=== PATIENT | female | born 1950 | race Caucasian/White ===

== ENCOUNTER 2018-08-07 09:13 | Outpatient (CLI) | payer MEDICARE, MEDICAID ==
[2018-08-07 10:20] LABS: BASOPHILS % (AUTO) 0.3 % (0-1); EOSINOPHILS # (AUTO) 0.2 X10'3 (0-0.9); EOSINOPHILS % (AUTO) 2.6 % (0-6); HEMATOCRIT 37.7 % (35.0-45.0); HEMOGLOBIN 12.5 g/dl (12.0-16.0); LYMPHOCYTES # (AUTO) 2.1 X10'3 (1.1-4.8); LYMPHOCYTES % (AUTO) 27.9 % (21-51); MEAN CORPUSCULAR HEMOGLOBIN 30.1 PG (27.0-31.0); MEAN CORPUSCULAR HGB CONC 33.1 g/dL (33.0-36.5); MEAN PLATELET VOLUME 8.3 FL (7.4-10.4); MONOCYTES # (AUTO) 0.5 X10'3 (0-0.9); MONOCYTES % (AUTO) 7.3 % (2-12); NEUTROPHILS # (AUTO) 4.6 X10'3 (1.8-7.7); NEUTROPHILS % (AUTO) 61.9 % (42-75); PLATELET COUNT 237 X10'3 (140-440); RED BLOOD COUNT 4.14 X10'6 (4.20-5.60); RED CELL DISTRIBUTION WIDTH 13.6 % (11.5-14.5); WHITE BLOOD COUNT 7.5 X10'3 (4.5-11.0)
[2018-08-07 10:27] LABS: ALANINE AMINOTRANSFERASE 38 U/L (12-78); ALBUMIN 3.7 G/DL (3.4-5.0); ALBUMIN/GLOBULIN RATIO 1.1 (1.1-1.5); ALKALINE PHOSPHATASE 82 IU/L (46-116); ANION GAP 7 (8-16); ASPARTATE AMINO TRANSFERASE 21 U/L (10-37); BILIRUBIN,TOTAL 0.4 MG/DL (0.1-1.0); BLOOD UREA NITROGEN 22 MG/DL (7-18); BUN/CREATININE RATIO 26.2 (6.6-38.0); CHLORIDE 106 MMOL/L (99-107); CREATININE 0.84 MG/DL (0.40-0.90); GLUCOSE 89 MG/DL (70-104); POTASSIUM 3.4 MMOL/L (3.5-5.1); SODIUM 143 MMOL/L (135-145); TOTAL CARBON DIOXIDE 29.7 MMOL/L (24-32); TOTAL PROTEIN 7.1 G/DL (6.4-8.2); eGFR 67 ML/MIN
[2018-08-07 10:31] LABS: PARTIAL THROMBOPLASTIN TIME 27 SECONDS (22-32)
== END 2018-08-07 23:59 | disposition home or self-care (01) ==
LOC: LAB 09:13
PROVIDERS: ATTEND Otolaryngology
DX: D69.1 Qualitative platelet defects (principal)
CPT/HCPCS: 36415; 80053; 85025; 85576; 85610; 85730

== ENCOUNTER 2022-05-13 16:59 | Emergency (ER) | payer MEDICARE, MEDICAID ==
[~2022-05-13] VITALS: Ht 172.7 cm; Wt 81.0 kg
--- NOTE | 2022-05-13 18:40 | NUR ---
VASCUALAR TECH EST 20 MIN
[2022-05-13 20:07] LABS: ALANINE AMINOTRANSFERASE 28 U/L (12-78); ALBUMIN 4.1 G/DL (3.4-5.0); ALBUMIN/GLOBULIN RATIO 1.2 (1.1-1.5); ALKALINE PHOSPHATASE 102 IU/L (46-116); ANION GAP 7 (8-16); ASPARTATE AMINO TRANSFERASE 26 U/L (10-37); BILIRUBIN,TOTAL 0.4 MG/DL (0.1-1.0); BLOOD UREA NITROGEN 26 MG/DL (7-18); BUN/CREATININE RATIO 31.3 (6.6-38.0); CALCIUM 9.5 MG/DL (8.5-10.1); CHLORIDE 104 MMOL/L (99-107); CREATININE 0.83 MG/DL (0.40-0.90); GLUCOSE 97 MG/DL (70-104); POTASSIUM 3.9 MMOL/L (3.5-5.1); SODIUM 141 MMOL/L (135-145); TOTAL CARBON DIOXIDE 30.4 MMOL/L (24-32); TOTAL PROTEIN 7.4 G/DL (6.4-8.2); eGFR 68 ML/MIN
[2022-05-13] MEDS ORDERED: APIX5TAB3 PO (20:25)
[2022-05-13] MEDS ORDERED: apixaban 5mg tablet PO STA (20:25)
[2022-05-13 20:37] VITALS: BP 137/87
== END 2022-05-13 20:44 | disposition home or self-care (01) ==
LOC: ER 16:59
DX: I82.401 Acute embolism and thrombosis of unspecified deep veins of right lower extremity (principal)
CPT/HCPCS: 36415; 80053; 93971; 99284; A6449

== ENCOUNTER 2024-08-27 05:58 | Day surgery (SDC) | payer MEDICARE, MEDICAID ==
--- NOTE | 2024-08-20 10:40 | ELECTROCARDIOGRAPH REPORT ---
[facility] Test Date: 2024-08-20 Test Time: 10:37:12 Pat Name: KVNG GOLD Department: [facility]-PRE-OP Patient ID: [facility]-[id number] Room: Gender: F Saxophone Player: JENNIFER : 1950 Requested By: SCAR ARGUELLES Order Number: [id number] Reading MD: Dr. Raegan Gary Measurements Intervals [place] Rate: 71 P: 70 MI: 166 QRS: 76 QRSD: 99 T: 71 QT: 409 QTc: 445 Interpretive Statements Sinus rhythm Atrial premature complex Electronically Signed On 08-21-2024 8:50:[address] Raegan Gary Please click the below link to view image of tracing.
[2024-08-27] VITALS (9 sets, daily range): BP systolic 118–147; BP diastolic 63–74; PULSE 80–100; RESP 12–20; TEMP 97.7; O2SAT 97–100
[~2024-08-27] VITALS: Ht 175.3 cm; Wt 75.1 kg
[2024-08-27] MEDS: ceFAZolin 2gm in dextrose, iso 50 ML IV ONE (05:30)
[2024-08-27] MEDS: tranexamic acid 1gm/0.7% sal. 100 ML IV ONE (05:30)
[~2024-08-27 05:58] MED LIST: ATOR40TA72 PO; AZEL137S4 BOTHNARES; ESCI-8 PO; FLUT16SP26 BOTHNARES; GUAI600T45 PO; HYDR12.55 PO; LEVO125T68 PO; LEVO50TA8 PO; MUPI22OI30 BOTHNARES; NAPR-1170 PO; [UNRECOGNIZED DRUG - REMARK] PO
[2024-08-27] MEDS ORDERED: cocaine 4% topical solution 4ml bottle ONE (06:43)
[2024-08-27] MEDS ORDERED: mupirocin 2% ointment 22GM ONE (06:44)
[2024-08-27] MEDS ORDERED: oxymetazoline 15 ML nasal spray NS ONE (06:44)
[2024-08-27] MEDS ORDERED: Thrombin (Bovine) 5,000 unit vial TP ONE (06:44)
[2024-08-27] MEDS ORDERED: methylPREDNISolone acetate 80mg/ml inj**IM only ONE (06:44)
[2024-08-27] MEDS ORDERED: epiNEPHrine 1 mg/ml 30ml MDV ONE (06:44)
[2024-08-27] MEDS ORDERED: LIDOcaine 1% W/epiNEPHrine 1:100,000 20ml vial ONE (06:44)
[2024-08-27] MEDS: famotidine 20mg tablet PO ONE (07:01)
[2024-08-27] MEDS: ringers solution, lacted 1,000 ML IV SCH (07:02)
[2024-08-27] MEDS: oxymetazoline 15 ML nasal spray NS ONE (07:38)
[2024-08-27] MEDS ORDERED: fentaNYL/PF 50MCG/1 ML 2ML syringe ONE (08:06)
[2024-08-27] MEDS ORDERED: midazolam 1 mg/ML 2ml injection ONE (08:06)
[2024-08-27] MEDS ORDERED: propofol inj 20 ML IV ONE (08:18)
[2024-08-27] MEDS ORDERED: LIDOcaine 2% (20mg/ml) 5ml vial ONE (08:18)
[2024-08-27] MEDS ORDERED: dexamethasone sod phosphate 4mg/ml inj. ONE (08:18)
[2024-08-27] MEDS ORDERED: ondansetron/PF 4mg/2ml inj ONE (08:19)
[2024-08-27] MEDS ORDERED: labetalol 20mg/4ml (5mg/ml) syringe IV PRN (09:00)
[2024-08-27] MEDS ORDERED: ondansetron/PF 4mg/2ml inj IV PRN (09:00)
[2024-08-27] MEDS ORDERED: ringers solution, lacted 1,000 ML IV SCH (09:00)
[2024-08-27] MEDS ORDERED: proCHLORperazine 10 MG/2 ml inj IV PRN (09:00)
[2024-08-27] MEDS ORDERED: enalaprilat 1.25mg/ml 2ml vial IV PRN (09:00)
[2024-08-27] MEDS ORDERED: morphine 2 MG/ML inj. syringe IV PRN (09:00)
[2024-08-27] MEDS ORDERED: meperidine/PF 25mg/ml syringe IV PRN ×3 (09:00)
[2024-08-27] MEDS ORDERED: morphine 4 MG/ML inj SYRINge IV PRN (09:00)
[2024-08-27] MEDS: salt irrigation nasal spray 45 ML SPRAY NS PRN (09:50)
--- NOTE | 2024-08-27 10:13 | OPERATIVE REPORT ---
DATE OF SURGERY: 08/27/2024 DICTATING PHYSICIAN: Prince Cornelius MD PREOPERATIVE DIAGNOSIS: Chronic rhinosinusitis. POSTOPERATIVE DIAGNOSIS: Chronic rhinosinusitis. PROCEDURES: * Nasal endoscopy surgical with right and left total ethmoidectomy with removal of hyperplastic tissue and bony obstruction. * Nasal endoscopy surgical with right and left frontal sinusotomy with removal of hyperplastic tissue and bony obstruction. * Nasal endoscopy surgical with right and left middle meatal maxillary antrostomy with removal of hyperplastic tissue and bony obstruction. * Submucous resection of right and left inferior turbinates. * Nasal endoscopy surgical with left bibiana bullosa excision, stereotactic computer-assisted navigational procedure, extracranial. SURGEON: Prince Cornelius MD ANESTHESIA: General laryngeal mask, Dr. Boyd. HISTORY: The patient is a 74-year-old female with nasal airway obstruction and recurrent acute rhinosinusitis with headache, refractory to maximal medical therapy. She has already had one prior sinus surgery. On physical examination, hyperplastic tissue was noted within the ethmoid sinuses and maxillary sinus ostial stenosis noted. The risks, alternatives, and benefits of surgery were explained to the patient and accepted. DESCRIPTION OF PROCEDURE: The patient was brought to the operating room, given a general laryngeal mask anesthesia and prepped and draped in the usual fashion. A 1% Xylocaine with 1:100,000 epinephrine was infiltrated into the planned surgical sites utilizing headlight and endoscope. Image-guided system was attached to the patient and calibration and verification satisfactorily accomplished. The reason we had chosen to carry out this procedure under image guidance was the presence of diseased tissue in the posterior ethmoid along the base of the skull and lamina papyracea and also adjacent to the frontal sinus bilaterally. The first procedure to be carried out was the excision of a remnant of the left middle turbinate bibiana bullosa. This was facilitated using a microshaver. Then, a total ethmoidectomy completion revision was carried out using straight and curved microshaver blades and Thru-cut instrumentation with continuous image guidance to prevent penetration of the lamina papyracea or base of skull. We dissected posteriorly to the anterior wall of the sphenoid sinus superiorly along the base of the skull with a reverse 30 endoscope medially to the middle turbinate/cribriform plate and laterally along the lamina papyracea. Then, an extension of the diseased tissue was found penetrating into the frontal egress and this was removed using frontal sinus giraffe forceps. At no time was the roof of the ethmoid, lamina papyracea, or posterior wall of the frontal sinus penetrated. The left maxillary sinus ostium was enlarged using Thru-cut instrumentation creating a large hole middle meatal maxillary antrostomy. A submucous resection of the left inferior turbinate was carried out using the microshaver technique. A medial flap was raised after creating an anterior stab wound and then the undersurface of the flap microshaved away. The medial flap was allowed to replace itself down upon the conchal bone. The left ethmoid cavity was packed with cottonoids soaked in 1:1000 adrenaline and thrombin and then we turned our attention to the right side. We carried out a revision right middle meatal maxillary antrostomy, a completion total ethmoidectomy, a frontal sinusotomy, and a submucous resection of the right inferior turbinate utilizing the same techniques as described above, having encountered the same findings, namely hyperplastic tissue and bony obstruction throughout the aforementioned sinuses. Cottonoids soaked in 1:1000 adrenaline and thrombin were placed on the right. After several minutes, the cottonoids were removed. Hemostasis was intact. Bactroban water soluble ointment was used to fill the right and left maxillary sinuses and the ethmoid cavities were packed with PosiSep. One cottonoid was placed in each nasal cavity for pressure hemostasis. These will be removed in the recovery room, leaving the patient unpacked. The patient tolerated the procedure well with the commitment of a minimal blood loss. Prince Cornelius MD TID: [id number] RECEIPT: [id number] HESHAM/REY
--- NOTE | 2024-08-28 16:31 | PATHOLOGY REPORT ---
[facility] [address] [place] [address] SURGICAL PATHOLOGY REPORT CaseNumber: [id number] Surgeon:Prince Cornelius P.A.-C CLINICAL INFORMATION CLINICAL INFORMATION: Sinusitis, hypertrophy. DIAGNOSIS DIAGNOSIS: A.SINUS, LEFT; RESECTION - MINIMAL CHRONIC SINUSITIS. DIAGNOSIS: B.SINUS, RIGHT; RESECTION - MINIMAL CHRONIC SINUSITIS. MICROSCOPIC DESCRIPTION A. SINUS, LEFT MICROSCOPIC DESCRIPTION: One slide from part A is examined. Present is upper respiratory tract mucosa with associated trabecular bone. There is new bone formation with cement lines. There are minimal nu mbers of lymphocytes. Some of the trabecular bone shows new bone formation with cement lines. There i s no increased eosinophils, active inflammation, allergic mucin, clouds of bacteria, fungal element, or dysplasia/neoplasia. B. SINUS, RIGHT MICROSCOPIC DESCRIPTION: One slide from part B is examined. Present is upper respiratory tract mucosa with associated trabecular bone. There is new bone formation with cement lines. There are minimal nu mbers of lymphocytes. There is no increased eosinophils, active inflammation, allergic mucin, clouds of bacteria, fungal elements, or dysplasia/neoplasia. (bb) GROSS DESCRIPTION A. SINUS, LEFT GROSS DESCRIPTION: Received in a container of formalin labeled with the patient's name, number, and " L sinus & turbinates " is a 1 cm aggregate of irregularly shaped pieces of bone and pink-mejia to mejia s oft tissue. The specimen is decalcified and entirely submitted as A1. The time at which the specimen was removed was 0847. The time at which the specimen was placed in formalin was 0915. B. SINUS, RIGHT GROSS DESCRIPTION: Received in a container of formalin labeled with the patient's name, number, and " R sinus & turbinates " is a 0.8 cm aggregate of irregularly shaped pieces of bone and pink-mejia to mejia soft tissue. The specimen is decalcified and entirely submitted as B1. The time at which the specime n was removed was 0847. The time at which the specimen was placed in formalin was 0915. Electronically signed by: Fredo Marti M.D. 08/28/2024 3:52:00 PM
== END 2024-08-27 10:38 | disposition home or self-care (01) ==
LOC: PAS 05:58
PROVIDERS: ATTEND Otolaryngology
DX: J32.8 Other chronic sinusitis (principal); J34.3 Hypertrophy of nasal turbinates; E03.9 Hypothyroidism, unspecified; F41.9 Anxiety disorder, unspecified; F32.A Depression, unspecified; I10 Essential (primary) hypertension; Z79.899 Other long term (current) drug therapy
CPT/HCPCS: 30140; 31240; 31253; 31256; 31257; 61782; 82948; 93005; A4618; A6402; A7000; J0171; J1100; J2003; J2250; J2405; J2704; J3010; J3490; J7030; J7040; J7120; Z7506; Z7508; Z7512; Z7610; A6449; J1010